=== PATIENT | male | born 1940 | race Caucasian/White ===

== ENCOUNTER 2018-10-04 16:24 | Inpatient (IN) | payer MEDICARE, OTHER ==
[~2018-10-04] VITALS: Ht 172.7 cm; Wt 86.2 kg
[2018-10-04 18:20] VITALS: BP 109/50
[2018-10-04] MEDS ORDERED: OxyCODONE HCL/ACETAMINOPHEN 10-325 MG TABLET PO PRN (19:30)
[2018-10-04] MEDS ORDERED: DEXTROSE 50%-WATER 25 GM/50 ML SYRINGE IVP PRN (19:30)
[2018-10-04 20:00] VITALS: BP 130/80
[2018-10-04] MEDS: OxyCODONE HCL/ACETAMINOPHEN 5-325 MG TABLET PO PRN (21:36)
[2018-10-04 22:15] LABS: GLUCOMETER DEV NAME(LOC) 2WR.2; GLUCOSE,POINT OF CARE 207 MG/DL (70-110)
[2018-10-04] MEDS ORDERED: SENNA 187 MG TABLET PO PRN (22:30)
[2018-10-04] MEDS ORDERED: TiZANidine HCL 4 MG TABLET PO PRN (22:45)
[2018-10-04] MEDS: INSULIN LISPRO 100 UNITS/ML SQ PRN (23:00)
[2018-10-04 23:34] LABS: GLUCOMETER DEV NAME(LOC) 2WR.2; GLUCOSE,POINT OF CARE 212 MG/DL (70-110)
[2018-10-04] MEDS: INSULIN GLARGINE,HUM.REC.ANLOG 100 UNITS/ML SQ SCH (23:39)
[2018-10-05 00:45] VITALS: BP 131/78
[2018-10-05 06:05] LABS: GLUCOMETER DEV NAME(LOC) 2WR.2; GLUCOSE,POINT OF CARE 151 MG/DL (70-110)
[2018-10-05 07:42] LABS: BASOPHILS % (AUTO) 0.5 % (0.0-2.0); EOSINOPHILS % (AUTO) 2.6 % (1.0-6.0); HEMATOCRIT 34.6 % (41-53); HEMOGLOBIN 11.6 g/dL (13.5-17.5); LYMPHOCYTES % (AUTO) 12.8 % (22.0-44.0); MEAN CORPUSCULAR HEMOGLOBIN 29.5 pg (26.0-34.0); MEAN CORPUSCULAR HGB CONC 33.5 G/dL (31.0-37.0); MEAN CORPUSCULAR VOLUME 88 fL (80-100); MONOCYTES # (AUTO) 0.8 K/uL (0.1-1.0); MONOCYTES % (AUTO) 11.4 % (2.0-9.0); NEUTROPHILS # (AUTO) 5.4 K/uL (1.8-7.7); NEUTROPHILS % (AUTO) 72.7 % (40.0-70.0); PLATELET COUNT (AUTO) 203 K/uL (150-450); RED BLOOD CELL COUNT(AUTO) 3.93 MIL/uL (4.50-5.90); RED CELL DISTRIBUTION WIDTH 13.7 % (11.5-14.5)
[2018-10-05 08:02] LABS: ANION GAP 7 mmol/L (8-16); CALCIUM, TOTAL 8.5 mg/dL (8.8-10.5); CARBON DIOXIDE 27 mmol/L (22-29); CHLORIDE 100 mmol/L (98-107); CREATININE 0.83 mg/dL (0.60-1.30); GLUCOSE,RANDOM 151 mg/dL (70-110); POTASSIUM 4.6 mmol/L (3.5-5.1); SODIUM SERUM 134 mmol/L (136-145); UREA NITROGEN, BLOOD 11 mg/dL (7-18)
[2018-10-05 08:04] LABS: GLOMERULAR FILTR. RATE CALC > 60 mL/min (>60)
[2018-10-05 08:05] VITALS: BP 151/83
[2018-10-05] MEDS: CEPHALEXIN MONOHYDRATE 500 MG CAPSULE PO SCH ×4 (08:17→20:30)
[2018-10-05] MEDS: LISINOPRIL 20 MG TABLET PO SCH (08:17)
[2018-10-05] MEDS: MEMANTINE HCL 10 MG TABLET PO SCH ×2 (08:17→20:30)
[2018-10-05] MEDS: MetFORMIN HCL 500 MG TABLET PO SCH (08:17)
[2018-10-05] MEDS: OxyCODONE HCL/ACETAMINOPHEN 5-325 MG TABLET PO PRN (08:18)
[2018-10-05] MEDS: INSULIN LISPRO 100 UNITS/ML SQ PRN ×3 (08:25→20:38)
[2018-10-05 13:09] LABS: GLUCOMETER DEV NAME(LOC) 2WR.2; GLUCOSE,POINT OF CARE 151 MG/DL (70-110)
[2018-10-05 16:30] VITALS: BP 136/77
[2018-10-05] MEDS: ACETAMINOPHEN 325 MG TABLET PO PRN (17:46)
[2018-10-05 18:49] LABS: GLUCOMETER DEV NAME(LOC) 2WR.1; GLUCOSE,POINT OF CARE 183 MG/DL (70-110)
[2018-10-05 20:09] LABS: APPEARANCE,URINE CLEAR (CLEAR); BILIRUBIN,URINE NEGATIVE (NEGATIVE); GLUCOSE, URINE (UA) 250 mg/dL (NEGATIVE); KETONES,URINE NEGATIVE (NEGATIVE); LEUKOCYTE ESTERASE ,URINE NEGATIVE (NEGATIVE); NITRATE,URINE NEGATIVE (NEGATIVE); OCCULT BLOOD,URINE NEGATIVE (NEGATIVE); PROTEIN,URINE NEGATIVE (NEGATIVE); UROBILINOGEN,URINE 0.2 mg/dL (<=1.0)
[2018-10-05] MEDS: DULoxetine HCL 60 MG CAPSULE PO SCH (20:30)
[2018-10-05] MEDS: DONEPEZIL HCL 5 MG TABLET PO SCH (20:30)
[2018-10-05 20:36] LABS: BACTERIA,URINE None Seen /HPF (None Seen); RBC,URINE None Seen /HPF (0-2); SQUAMOUS EPITHELIAL CELL,UR Rare /LPF (None Seen); WBC,URINE 0-2 /HPF (0-5)
[2018-10-05] MEDS: INSULIN GLARGINE,HUM.REC.ANLOG 100 UNITS/ML SQ SCH (20:38)
[2018-10-05] MEDS ORDERED: INSULIN GLARGINE,HUM.REC.ANLOG 100 UNITS/ML SQ SCH (21:00)
[2018-10-05 21:24] LABS: GLUCOMETER DEV NAME(LOC) 2WR.1; GLUCOSE,POINT OF CARE 193 MG/DL (70-110)
[2018-10-05 23:00] VITALS: BP 102/62
[2018-10-06] VITALS: BP 102/62
[2018-10-06 06:39] LABS: GLUCOMETER DEV NAME(LOC) 2WR.2; GLUCOSE,POINT OF CARE 163 MG/DL (70-110)
[2018-10-06 07:20] VITALS: BP 150/68
[2018-10-06] MEDS: LISINOPRIL 20 MG TABLET PO SCH (09:09)
[2018-10-06] MEDS: MEMANTINE HCL 10 MG TABLET PO SCH ×2 (09:09→19:54)
[2018-10-06] MEDS: CEPHALEXIN MONOHYDRATE 500 MG CAPSULE PO SCH ×4 (09:10→19:54)
[2018-10-06] MEDS: MetFORMIN HCL 500 MG TABLET PO SCH (09:10)
[2018-10-06] MEDS: INSULIN LISPRO 100 UNITS/ML SQ PRN ×3 (09:15→17:41)
[2018-10-06 11:30] LABS: GLUCOMETER DEV NAME(LOC) 2WR.2; GLUCOSE,POINT OF CARE 198 MG/DL (70-110)
[2018-10-06] MEDS ORDERED: DiphenhydrAMINE HCL 25 MG CAPSULE PO PRN (14:45)
[2018-10-06 15:51] VITALS: BP 127/83
[2018-10-06] MEDS: DONEPEZIL HCL 5 MG TABLET PO SCH (19:54)
[2018-10-06] MEDS: TAMSULOSIN HCL 0.4 MG CAPSULE PO SCH (19:54)
[2018-10-06] MEDS: DULoxetine HCL 60 MG CAPSULE PO SCH (19:54)
[2018-10-06] MEDS: INSULIN GLARGINE,HUM.REC.ANLOG 100 UNITS/ML SQ SCH (20:14)
[2018-10-06 22:24] LABS: GLUCOMETER DEV NAME(LOC) 2WR.1; GLUCOSE,POINT OF CARE 241 MG/DL (70-110)
[2018-10-06 22:24] LABS: GLUCOMETER DEV NAME(LOC) 2WR.1; GLUCOSE,POINT OF CARE 176 MG/DL (70-110)
[2018-10-06] MEDS: MELATONIN 5 MG TABLET PO PRN (23:13)
[2018-10-07] VITALS: BP 135/73
[2018-10-07 06:15] LABS: GLUCOMETER DEV NAME(LOC) 2WR.1; GLUCOSE,POINT OF CARE 197 MG/DL (70-110)
[2018-10-07 06:32] LABS: BASOPHILS % (AUTO) 0.7 % (0.0-2.0); EOSINOPHILS % (AUTO) 6.1 % (1.0-6.0); HEMATOCRIT 33.5 % (41-53); HEMOGLOBIN 11.4 g/dL (13.5-17.5); LYMPHOCYTES # (AUTO) 1.2 K/uL (1.0-4.8); LYMPHOCYTES % (AUTO) 17.6 % (22.0-44.0); MEAN CORPUSCULAR HEMOGLOBIN 29.8 pg (26.0-34.0); MEAN CORPUSCULAR HGB CONC 33.9 G/dL (31.0-37.0); MEAN CORPUSCULAR VOLUME 88 fL (80-100); MONOCYTES # (AUTO) 0.8 K/uL (0.1-1.0); MONOCYTES % (AUTO) 11.6 % (2.0-9.0); NEUTROPHILS # (AUTO) 4.3 K/uL (1.8-7.7); PLATELET COUNT (AUTO) 269 K/uL (150-450); RED BLOOD CELL COUNT(AUTO) 3.83 MIL/uL (4.50-5.90); RED CELL DISTRIBUTION WIDTH 14.1 % (11.5-14.5)
[2018-10-07 07:45] VITALS: BP 139/75
[2018-10-07] MEDS: LISINOPRIL 20 MG TABLET PO SCH (08:03)
[2018-10-07] MEDS: MEMANTINE HCL 10 MG TABLET PO SCH ×2 (08:03→20:41)
[2018-10-07] MEDS: MetFORMIN HCL 500 MG TABLET PO SCH (08:03)
[2018-10-07] MEDS: CEPHALEXIN MONOHYDRATE 500 MG CAPSULE PO SCH ×4 (08:03→20:41)
[2018-10-07] MEDS: ACETAMINOPHEN 325 MG TABLET PO PRN (11:39)
[2018-10-07] MEDS ORDERED: QUEtiapine FUMARATE 25 MG TABLET PO PRN (12:00)
[2018-10-07] MEDS: INSULIN LISPRO 100 UNITS/ML SQ PRN ×3 (12:17→21:05)
[2018-10-07 12:45] LABS: GLUCOMETER DEV NAME(LOC) 2WR.2; GLUCOSE,POINT OF CARE 194 MG/DL (70-110)
[2018-10-07 16:30] VITALS: BP 111/68
[2018-10-07 18:36] LABS: GLUCOMETER DEV NAME(LOC) 2WR.1; GLUCOSE,POINT OF CARE 157 MG/DL (70-110)
[2018-10-07] MEDS: MELATONIN 5 MG TABLET PO PRN (20:41)
[2018-10-07] MEDS: TAMSULOSIN HCL 0.4 MG CAPSULE PO SCH (20:41)
[2018-10-07] MEDS: DULoxetine HCL 60 MG CAPSULE PO SCH (20:41)
[2018-10-07] MEDS: DONEPEZIL HCL 5 MG TABLET PO SCH (20:41)
[2018-10-07] MEDS ORDERED: QUEtiapine FUMARATE 25 MG TABLET PO SCH (21:00)
[2018-10-07] MEDS: INSULIN GLARGINE,HUM.REC.ANLOG 100 UNITS/ML SQ SCH (21:02)
[2018-10-07 23:05] LABS: GLUCOMETER DEV NAME(LOC) 2WR.1; GLUCOSE,POINT OF CARE 214 MG/DL (70-110)
[2018-10-08] VITALS: BP 126/69
[2018-10-08 06:54] LABS: GLUCOMETER DEV NAME(LOC) 2WR.1; GLUCOSE,POINT OF CARE 189 MG/DL (70-110)
[2018-10-08 07:18] LABS: ANION GAP 5 mmol/L (8-16); CALCIUM, TOTAL 8.7 mg/dL (8.8-10.5); CARBON DIOXIDE 30 mmol/L (22-29); CHLORIDE 101 mmol/L (98-107); CREATININE 0.88 mg/dL (0.60-1.30); GLUCOSE,RANDOM 183 mg/dL (70-110); POTASSIUM 4.2 mmol/L (3.5-5.1); SODIUM SERUM 136 mmol/L (136-145); THYROID STIMULATING HORMONE 1.79 uIU/mL (0.36-3.74); UREA NITROGEN, BLOOD 11 mg/dL (7-18)
[2018-10-08 07:19] LABS: GLOMERULAR FILTR. RATE CALC > 60 mL/min (>60)
[2018-10-08] MEDS: MetFORMIN HCL 500 MG TABLET PO SCH (07:37)
[2018-10-08 08:10] VITALS: BP 145/73
[2018-10-08] MEDS: CEPHALEXIN MONOHYDRATE 500 MG CAPSULE PO SCH ×4 (08:17→20:56)
[2018-10-08] MEDS: MEMANTINE HCL 10 MG TABLET PO SCH ×2 (09:27→20:56)
[2018-10-08] MEDS: LISINOPRIL 20 MG TABLET PO SCH (09:27)
[2018-10-08] MEDS: ACETAMINOPHEN 325 MG TABLET PO PRN (11:36)
[2018-10-08] MEDS: INSULIN LISPRO 100 UNITS/ML SQ PRN ×3 (12:33→20:58)
[2018-10-08 13:40] LABS: GLUCOMETER DEV NAME(LOC) 2WR.2; GLUCOSE,POINT OF CARE 223 MG/DL (70-110)
[2018-10-08 16:02] VITALS: BP 105/76
[2018-10-08 19:21] LABS: GLUCOMETER DEV NAME(LOC) 2WR.2; GLUCOSE,POINT OF CARE 185 MG/DL (70-110)
[2018-10-08] MEDS: TAMSULOSIN HCL 0.4 MG CAPSULE PO SCH (20:56)
[2018-10-08] MEDS: DULoxetine HCL 60 MG CAPSULE PO SCH (20:56)
[2018-10-08] MEDS: MELATONIN 5 MG TABLET PO PRN (20:56)
[2018-10-08] MEDS: DONEPEZIL HCL 5 MG TABLET PO SCH (20:56)
[2018-10-08] MEDS: INSULIN GLARGINE,HUM.REC.ANLOG 100 UNITS/ML SQ SCH (20:58)
[2018-10-08 22:20] LABS: GLUCOMETER DEV NAME(LOC) 2WR.1; GLUCOSE,POINT OF CARE 178 MG/DL (70-110)
[2018-10-09] VITALS: BP 141/72
[2018-10-09] MEDS: ACETAMINOPHEN 325 MG TABLET PO PRN ×3 (03:23→16:23)
[2018-10-09 06:12] LABS: GLUCOMETER DEV NAME(LOC) 2WR.1; GLUCOSE,POINT OF CARE 177 MG/DL (70-110)
[2018-10-09 07:15] VITALS: BP 132/75
[2018-10-09] MEDS: MetFORMIN HCL 500 MG TABLET PO SCH (08:01)
[2018-10-09] MEDS: MEMANTINE HCL 10 MG TABLET PO SCH ×2 (08:01→20:53)
[2018-10-09] MEDS: LISINOPRIL 20 MG TABLET PO SCH (08:01)
[2018-10-09] MEDS: CEPHALEXIN MONOHYDRATE 500 MG CAPSULE PO SCH ×4 (08:01→20:54)
[2018-10-09] MEDS: MULTIVITAMINS WITH MINERALS, THERAPEUTIC TABLET PO SCH (08:02)
[2018-10-09] MEDS: INSULIN LISPRO 100 UNITS/ML SQ PRN ×4 (08:08→21:03)
[2018-10-09 13:20] LABS: GLUCOMETER DEV NAME(LOC) 2WR.1; GLUCOSE,POINT OF CARE 195 MG/DL (70-110)
[2018-10-09 16:20] VITALS: BP 134/62
[2018-10-09 17:59] LABS: GLUCOMETER DEV NAME(LOC) 2WR.1; GLUCOSE,POINT OF CARE 192 MG/DL (70-110)
[2018-10-09] MEDS: DULoxetine HCL 60 MG CAPSULE PO SCH (20:52)
[2018-10-09] MEDS: MELATONIN 5 MG TABLET PO PRN (20:53)
[2018-10-09] MEDS: DONEPEZIL HCL 5 MG TABLET PO SCH (20:53)
[2018-10-09] MEDS: TAMSULOSIN HCL 0.4 MG CAPSULE PO SCH (20:53)
[2018-10-09] MEDS: INSULIN GLARGINE,HUM.REC.ANLOG 100 UNITS/ML SQ SCH (21:02)
[2018-10-09] MEDS: -LIDODERM PATCH NOTE- MISC SCH (21:03)
[2018-10-09 22:29] LABS: GLUCOMETER DEV NAME(LOC) 2WR.1; GLUCOSE,POINT OF CARE 211 MG/DL (70-110)
[2018-10-10 01:08] VITALS: BP 134/78
[2018-10-10] MEDS: ACETAMINOPHEN 325 MG TABLET PO PRN ×2 (01:08→15:40)
[2018-10-10 06:40] LABS: GLUCOMETER DEV NAME(LOC) 2WR.1; GLUCOSE,POINT OF CARE 184 MG/DL (70-110)
[2018-10-10] MEDS: MetFORMIN HCL 500 MG TABLET PO SCH (08:00)
[2018-10-10 08:02] VITALS: BP 127/75
[2018-10-10] MEDS: MULTIVITAMINS WITH MINERALS, THERAPEUTIC TABLET PO SCH (10:02)
[2018-10-10] MEDS: MEMANTINE HCL 10 MG TABLET PO SCH ×2 (10:02→20:30)
[2018-10-10] MEDS: LIDOCAINE 5% TRANSDERMAL PATCH TD SCH (10:02)
[2018-10-10] MEDS: DOCUSATE SODIUM 100 MG CAPSULE PO PRN (10:02)
[2018-10-10] MEDS: LISINOPRIL 20 MG TABLET PO SCH (10:05)
[2018-10-10] MEDS: INSULIN LISPRO 100 UNITS/ML SQ PRN ×3 (12:42→21:20)
[2018-10-10 12:50] LABS: GLUCOMETER DEV NAME(LOC) 2WR.1; GLUCOSE,POINT OF CARE 176 MG/DL (70-110)
[2018-10-10] MEDS ORDERED: HYDROCORTISONE 1% 30 GM OINTMENT TP SCH (13:45)
[2018-10-10] MEDS: HYDROCORTISONE 1% 30 GM OINTMENT TP SCH ×2 (15:09→20:31)
[2018-10-10 15:36] VITALS: BP 111/70
[2018-10-10 18:15] LABS: GLUCOMETER DEV NAME(LOC) 2WR.1; GLUCOSE,POINT OF CARE 174 MG/DL (70-110)
[2018-10-10 20:24] VITALS: BP 116/78
[2018-10-10] MEDS: DONEPEZIL HCL 5 MG TABLET PO SCH (20:30)
[2018-10-10] MEDS: DULoxetine HCL 60 MG CAPSULE PO SCH (20:30)
[2018-10-10] MEDS: MELATONIN 5 MG TABLET PO PRN (20:30)
[2018-10-10] MEDS: TAMSULOSIN HCL 0.4 MG CAPSULE PO SCH (20:30)
[2018-10-10] MEDS: -LIDODERM PATCH NOTE- MISC SCH (20:30)
[2018-10-10] MEDS: INSULIN GLARGINE,HUM.REC.ANLOG 100 UNITS/ML SQ SCH (21:19)
[2018-10-10 21:29] LABS: GLUCOMETER DEV NAME(LOC) 2WR.1; GLUCOSE,POINT OF CARE 197 MG/DL (70-110)
[2018-10-11 02:58] VITALS: BP 128/89
[2018-10-11 06:29] LABS: GLUCOMETER DEV NAME(LOC) 2WR.1; GLUCOSE,POINT OF CARE 183 MG/DL (70-110)
[2018-10-11 07:20] VITALS: BP 118/66
[2018-10-11] MEDS: MULTIVITAMINS WITH MINERALS, THERAPEUTIC TABLET PO SCH (08:12)
[2018-10-11] MEDS: HYDROCORTISONE 1% 30 GM OINTMENT TP SCH ×3 (08:13→21:14)
[2018-10-11] MEDS: LISINOPRIL 20 MG TABLET PO SCH (08:13)
[2018-10-11] MEDS: MEMANTINE HCL 10 MG TABLET PO SCH ×2 (08:13→21:15)
[2018-10-11] MEDS: MetFORMIN HCL 500 MG TABLET PO SCH (08:13)
[2018-10-11] MEDS: LIDOCAINE 5% TRANSDERMAL PATCH TD SCH (08:13)
[2018-10-11] MEDS: INSULIN LISPRO 100 UNITS/ML SQ PRN ×4 (08:17→21:28)
[2018-10-11 11:45] LABS: BASOPHILS % (AUTO) 0.6 % (0.0-2.0); EOSINOPHILS % (AUTO) 4.6 % (1.0-6.0); HEMATOCRIT 40.5 % (41-53); HEMOGLOBIN 13.6 g/dL (13.5-17.5); LYMPHOCYTES # (AUTO) 1.4 K/uL (1.0-4.8); LYMPHOCYTES % (AUTO) 15.6 % (22.0-44.0); MEAN CORPUSCULAR HEMOGLOBIN 29.3 pg (26.0-34.0); MEAN CORPUSCULAR HGB CONC 33.5 G/dL (31.0-37.0); MEAN CORPUSCULAR VOLUME 88 fL (80-100); MONOCYTES # (AUTO) 0.7 K/uL (0.1-1.0); NEUTROPHILS # (AUTO) 6.7 K/uL (1.8-7.7); NEUTROPHILS % (AUTO) 72.2 % (40.0-70.0); PLATELET COUNT (AUTO) 484 K/uL (150-450); RED BLOOD CELL COUNT(AUTO) 4.63 MIL/uL (4.50-5.90)
[2018-10-11 12:34] LABS: GLUCOMETER DEV NAME(LOC) 2WR.2; GLUCOSE,POINT OF CARE 183 MG/DL (70-110)
[2018-10-11] MEDS ORDERED: CETIRIZINE HCL 10 MG TABLET PO PRN (15:15)
[2018-10-11 15:18] VITALS: BP 98/67
[2018-10-11] MEDS ORDERED: DEXAMETHASONE 4 MG TABLET PO SCH (18:00)
[2018-10-11] MEDS: TAMSULOSIN HCL 0.4 MG CAPSULE PO SCH (21:15)
[2018-10-11] MEDS: DULoxetine HCL 60 MG CAPSULE PO SCH (21:15)
[2018-10-11] MEDS: DONEPEZIL HCL 5 MG TABLET PO SCH (21:15)
[2018-10-11] MEDS: MELATONIN 5 MG TABLET PO PRN (21:16)
[2018-10-11] MEDS: FLUOCINONIDE 0.05% 15 GM OINTMENT TP SCH (21:16)
[2018-10-11] MEDS: INSULIN GLARGINE,HUM.REC.ANLOG 100 UNITS/ML SQ SCH (21:27)
[2018-10-11] MEDS: -LIDODERM PATCH NOTE- MISC SCH (21:28)
[2018-10-11 21:43] LABS: GLUCOMETER DEV NAME(LOC) 2WR.2; GLUCOSE,POINT OF CARE 190 MG/DL (70-110)
[2018-10-12 00:34] VITALS: BP 117/79
[2018-10-12 05:29] LABS: GLUCOMETER DEV NAME(LOC) 2WR.1; GLUCOSE,POINT OF CARE 183 MG/DL (70-110)
[2018-10-12 06:34] LABS: GLUCOMETER DEV NAME(LOC) 2WR.2; GLUCOSE,POINT OF CARE 150 MG/DL (70-110)
[2018-10-12 07:15] VITALS: BP 110/69
[2018-10-12] MEDS: LISINOPRIL 20 MG TABLET PO SCH (08:00)
[2018-10-12] MEDS: MetFORMIN HCL 500 MG TABLET PO SCH (08:00)
[2018-10-12] MEDS: MEMANTINE HCL 10 MG TABLET PO SCH ×2 (08:00→21:01)
[2018-10-12] MEDS: MULTIVITAMINS WITH MINERALS, THERAPEUTIC TABLET PO SCH (08:00)
[2018-10-12] MEDS: DOCUSATE SODIUM 100 MG CAPSULE PO PRN (08:00)
[2018-10-12] MEDS: LIDOCAINE 5% TRANSDERMAL PATCH TD SCH (08:14)
[2018-10-12] MEDS: FLUOCINONIDE 0.05% 15 GM OINTMENT TP SCH ×2 (11:49→21:02)
[2018-10-12 12:00] LABS: GLUCOMETER DEV NAME(LOC) 2WR.1; GLUCOSE,POINT OF CARE 162 MG/DL (70-110)
[2018-10-12] MEDS: INSULIN LISPRO 100 UNITS/ML SQ PRN ×3 (12:18→21:05)
[2018-10-12 16:05] VITALS: BP 101/62
[2018-10-12 18:55] LABS: GLUCOMETER DEV NAME(LOC) 2WR.2; GLUCOSE,POINT OF CARE 149 MG/DL (70-110)
[2018-10-12] MEDS: MELATONIN 5 MG TABLET PO PRN (21:01)
[2018-10-12] MEDS: TAMSULOSIN HCL 0.4 MG CAPSULE PO SCH (21:01)
[2018-10-12] MEDS: DULoxetine HCL 60 MG CAPSULE PO SCH (21:01)
[2018-10-12] MEDS: DONEPEZIL HCL 5 MG TABLET PO SCH (21:01)
[2018-10-12] MEDS: -LIDODERM PATCH NOTE- MISC SCH (21:01)
[2018-10-12] MEDS: INSULIN GLARGINE,HUM.REC.ANLOG 100 UNITS/ML SQ SCH (21:03)
[2018-10-12 23:25] LABS: GLUCOMETER DEV NAME(LOC) 2WR.2; GLUCOSE,POINT OF CARE 160 MG/DL (70-110)
[2018-10-13 01:43] VITALS: BP 110/64
[2018-10-13 06:04] LABS: GLUCOMETER DEV NAME(LOC) 2WR.2; GLUCOSE,POINT OF CARE 98 MG/DL (70-110)
[2018-10-13] MEDS: MetFORMIN HCL 500 MG TABLET PO SCH (07:00)
[2018-10-13 08:01] VITALS: BP 119/61
[2018-10-13] MEDS: MEMANTINE HCL 10 MG TABLET PO SCH ×2 (08:33→20:27)
[2018-10-13] MEDS: MULTIVITAMINS WITH MINERALS, THERAPEUTIC TABLET PO SCH (08:33)
[2018-10-13] MEDS: FLUOCINONIDE 0.05% 15 GM OINTMENT TP SCH ×2 (08:33→20:33)
[2018-10-13] MEDS: LISINOPRIL 20 MG TABLET PO SCH (08:33)
[2018-10-13] MEDS: LIDOCAINE 5% TRANSDERMAL PATCH TD SCH (08:43)
[2018-10-13 12:20] LABS: GLUCOMETER DEV NAME(LOC) 2WR.2; GLUCOSE,POINT OF CARE 159 MG/DL (70-110)
[2018-10-13] MEDS: CAMPHOR/MENTHOL 222 ML LOTION TP SCH ×2 (17:14→20:33)
[2018-10-13 17:41] VITALS: BP 116/73
[2018-10-13 18:16] LABS: GLUCOMETER DEV NAME(LOC) 2WR.2; GLUCOSE,POINT OF CARE 132 MG/DL (70-110)
[2018-10-13] MEDS: TAMSULOSIN HCL 0.4 MG CAPSULE PO SCH (20:27)
[2018-10-13] MEDS: CETIRIZINE HCL 10 MG TABLET PO SCH (20:28)
[2018-10-13] MEDS: DULoxetine HCL 60 MG CAPSULE PO SCH (20:28)
[2018-10-13] MEDS: DONEPEZIL HCL 5 MG TABLET PO SCH (20:28)
[2018-10-13] MEDS: INSULIN GLARGINE,HUM.REC.ANLOG 100 UNITS/ML SQ SCH (20:30)
[2018-10-13] MEDS: INSULIN LISPRO 100 UNITS/ML SQ PRN (20:31)
[2018-10-13] MEDS: -LIDODERM PATCH NOTE- MISC SCH (20:38)
[2018-10-13 21:19] LABS: GLUCOMETER DEV NAME(LOC) 2WR.2; GLUCOSE,POINT OF CARE 240 MG/DL (70-110)
[2018-10-13] MEDS: MELATONIN 5 MG TABLET PO PRN (22:33)
[2018-10-13 23:30] VITALS: BP 131/63
[2018-10-14 05:55] LABS: GLUCOMETER DEV NAME(LOC) 2WR.2; GLUCOSE,POINT OF CARE 123 MG/DL (70-110)
[2018-10-14] MEDS: MetFORMIN HCL 500 MG TABLET PO SCH (07:56)
[2018-10-14] MEDS: MULTIVITAMINS WITH MINERALS, THERAPEUTIC TABLET PO SCH (08:00)
[2018-10-14] MEDS: MEMANTINE HCL 10 MG TABLET PO SCH ×2 (08:00→20:28)
[2018-10-14] MEDS: LIDOCAINE 5% TRANSDERMAL PATCH TD SCH (08:00)
[2018-10-14] MEDS: FLUOCINONIDE 0.05% 15 GM OINTMENT TP SCH ×2 (08:00→20:25)
[2018-10-14] MEDS: LISINOPRIL 20 MG TABLET PO SCH (08:01)
[2018-10-14] MEDS: CAMPHOR/MENTHOL 222 ML LOTION TP SCH ×3 (08:01→22:20)
[2018-10-14 14:15] LABS: GLUCOMETER DEV NAME(LOC) 2WR.1; GLUCOSE,POINT OF CARE 126 MG/DL (70-110)
[2018-10-14 17:19] LABS: GLUCOMETER DEV NAME(LOC) 2WR.2; GLUCOSE,POINT OF CARE 162 MG/DL (70-110)
[2018-10-14] MEDS: INSULIN LISPRO 100 UNITS/ML SQ PRN ×2 (17:50→22:18)
[2018-10-14] MEDS: DULoxetine HCL 60 MG CAPSULE PO SCH (20:26)
[2018-10-14] MEDS: TAMSULOSIN HCL 0.4 MG CAPSULE PO SCH (20:26)
[2018-10-14] MEDS: CETIRIZINE HCL 10 MG TABLET PO SCH (20:26)
[2018-10-14] MEDS: DONEPEZIL HCL 5 MG TABLET PO SCH (20:26)
[2018-10-14] MEDS: INSULIN GLARGINE,HUM.REC.ANLOG 100 UNITS/ML SQ SCH (22:18)
[2018-10-14] MEDS: -LIDODERM PATCH NOTE- MISC SCH (22:20)
[2018-10-14 23:14] LABS: GLUCOMETER DEV NAME(LOC) 2WR.2; GLUCOSE,POINT OF CARE 149 MG/DL (70-110)
[2018-10-14 23:56] VITALS: BP 122/62
[2018-10-15 05:54] LABS: GLUCOMETER DEV NAME(LOC) 2WR.2; GLUCOSE,POINT OF CARE 138 MG/DL (70-110)
[2018-10-15 07:20] VITALS: BP 131/76
[2018-10-15] MEDS: LISINOPRIL 20 MG TABLET PO SCH (07:54)
[2018-10-15] MEDS: DOCUSATE SODIUM 100 MG CAPSULE PO PRN (07:54)
[2018-10-15] MEDS: FLUOCINONIDE 0.05% 15 GM OINTMENT TP SCH ×2 (07:54→20:17)
[2018-10-15] MEDS: LIDOCAINE 5% TRANSDERMAL PATCH TD SCH (07:54)
[2018-10-15] MEDS: MULTIVITAMINS WITH MINERALS, THERAPEUTIC TABLET PO SCH (07:54)
[2018-10-15] MEDS: MEMANTINE HCL 10 MG TABLET PO SCH ×2 (07:54→20:17)
[2018-10-15] MEDS: MetFORMIN HCL 500 MG TABLET PO SCH (07:54)
[2018-10-15] MEDS: CAMPHOR/MENTHOL 222 ML LOTION TP SCH ×3 (07:58→20:17)
[2018-10-15 15:46] VITALS: BP 113/74
[2018-10-15] MEDS: INSULIN LISPRO 100 UNITS/ML SQ PRN ×2 (17:41→20:38)
[2018-10-15 17:50] LABS: GLUCOMETER DEV NAME(LOC) 2WR.1; GLUCOSE,POINT OF CARE 176 MG/DL (70-110)
[2018-10-15 20:13] VITALS: BP 115/67
[2018-10-15] MEDS: -LIDODERM PATCH NOTE- MISC SCH (20:16)
[2018-10-15] MEDS: CETIRIZINE HCL 10 MG TABLET PO SCH (20:17)
[2018-10-15] MEDS: DONEPEZIL HCL 5 MG TABLET PO SCH (20:17)
[2018-10-15] MEDS: TAMSULOSIN HCL 0.4 MG CAPSULE PO SCH (20:17)
[2018-10-15] MEDS: DULoxetine HCL 60 MG CAPSULE PO SCH (20:17)
[2018-10-15] MEDS: INSULIN GLARGINE,HUM.REC.ANLOG 100 UNITS/ML SQ SCH (20:38)
[2018-10-15 21:54] LABS: GLUCOMETER DEV NAME(LOC) 2WR.1; GLUCOSE,POINT OF CARE 177 MG/DL (70-110)
[2018-10-15] MEDS: MELATONIN 5 MG TABLET PO PRN (21:57)
[2018-10-15] MEDS ORDERED: MULT-248 PO (23:00)
[2018-10-15] MEDS ORDERED: FLUO15OI TP (23:00)
[2018-10-15] MEDS ORDERED: CETI10TA59 PO (23:00)
[2018-10-15] MEDS ORDERED: DULO60CA44 PO (23:00)
[2018-10-15] MEDS ORDERED: METF-960 PO (23:00)
[2018-10-15] MEDS ORDERED: MEMA10TA11 PO (23:00)
[2018-10-15] MEDS ORDERED: LISI-662 PO (23:00)
[2018-10-15] MEDS ORDERED: DONE5TAB5 PO (23:00)
[2018-10-15] MEDS ORDERED: TAMS-1 PO (23:00)
[2018-10-15] MEDS ORDERED: LIDO700A15 TD (23:00)
[2018-10-15] MEDS ORDERED: INSLAN SQ (23:00)
[2018-10-15] MEDS ORDERED: SARN225L TP (23:00)
[2018-10-16 02:35] VITALS: BP 130/90
[2018-10-16 06:30] LABS: GLUCOMETER DEV NAME(LOC) 2WR.1; GLUCOSE,POINT OF CARE 114 MG/DL (70-110)
[2018-10-16] MEDS: MetFORMIN HCL 500 MG TABLET PO SCH (07:55)
[2018-10-16 08:22] VITALS: BP 104/60
[2018-10-16] MEDS: MEMANTINE HCL 10 MG TABLET PO SCH ×2 (09:01→21:05)
[2018-10-16] MEDS: MULTIVITAMINS WITH MINERALS, THERAPEUTIC TABLET PO SCH (09:01)
[2018-10-16] MEDS: LISINOPRIL 20 MG TABLET PO SCH (09:01)
[2018-10-16] MEDS: CAMPHOR/MENTHOL 222 ML LOTION TP SCH ×3 (09:34→21:07)
[2018-10-16] MEDS: LIDOCAINE 5% TRANSDERMAL PATCH TD SCH (09:34)
[2018-10-16] MEDS: FLUOCINONIDE 0.05% 15 GM OINTMENT TP SCH ×2 (09:34→21:07)
[2018-10-16 12:40] LABS: GLUCOMETER DEV NAME(LOC) 2WR.2; GLUCOSE,POINT OF CARE 95 MG/DL (70-110)
[2018-10-16 14:52] VITALS: BP 137/73
[2018-10-16 16:00] VITALS: BP 116/48
[2018-10-16 17:14] LABS: GLUCOMETER DEV NAME(LOC) 2WR.1; GLUCOSE,POINT OF CARE 171 MG/DL (70-110)
[2018-10-16] MEDS: INSULIN LISPRO 100 UNITS/ML SQ PRN ×2 (17:58→21:19)
[2018-10-16] MEDS: TAMSULOSIN HCL 0.4 MG CAPSULE PO SCH (21:05)
[2018-10-16] MEDS: DONEPEZIL HCL 5 MG TABLET PO SCH (21:05)
[2018-10-16] MEDS: MELATONIN 5 MG TABLET PO PRN (21:05)
[2018-10-16] MEDS: CETIRIZINE HCL 10 MG TABLET PO SCH (21:06)
[2018-10-16] MEDS: DULoxetine HCL 60 MG CAPSULE PO SCH (21:07)
[2018-10-16] MEDS: -LIDODERM PATCH NOTE- MISC SCH (21:07)
[2018-10-16] MEDS: INSULIN GLARGINE,HUM.REC.ANLOG 100 UNITS/ML SQ SCH (21:19)
[2018-10-16 21:49] LABS: GLUCOMETER DEV NAME(LOC) 2WR.2; GLUCOSE,POINT OF CARE 164 MG/DL (70-110)
[2018-10-17 02:56] VITALS: BP 143/80
[2018-10-17 05:59] LABS: GLUCOMETER DEV NAME(LOC) 2WR.2; GLUCOSE,POINT OF CARE 128 MG/DL (70-110)
[2018-10-17] MEDS: MetFORMIN HCL 500 MG TABLET PO SCH (07:56)
[2018-10-17 08:39] VITALS: BP 125/80
[2018-10-17] MEDS: MEMANTINE HCL 10 MG TABLET PO SCH ×2 (09:00→20:32)
[2018-10-17] MEDS: LIDOCAINE 5% TRANSDERMAL PATCH TD SCH ×3 (09:00→12:19)
[2018-10-17] MEDS: MULTIVITAMINS WITH MINERALS, THERAPEUTIC TABLET PO SCH (09:00)
[2018-10-17] MEDS: FLUOCINONIDE 0.05% 15 GM OINTMENT TP SCH ×2 (09:00→20:46)
[2018-10-17] MEDS: LISINOPRIL 20 MG TABLET PO SCH (09:00)
[2018-10-17] MEDS: CAMPHOR/MENTHOL 222 ML LOTION TP SCH ×3 (09:00→20:46)
[2018-10-17] MEDS: INSULIN LISPRO 100 UNITS/ML SQ PRN ×2 (12:08→20:43)
[2018-10-17 12:39] LABS: GLUCOMETER DEV NAME(LOC) 2WR.2; GLUCOSE,POINT OF CARE 142 MG/DL (70-110)
[2018-10-17 15:51] VITALS: BP 111/71
[2018-10-17 17:29] LABS: GLUCOMETER DEV NAME(LOC) 2WR.2; GLUCOSE,POINT OF CARE 121 MG/DL (70-110)
[2018-10-17] MEDS: CETIRIZINE HCL 10 MG TABLET PO SCH (20:32)
[2018-10-17] MEDS: DULoxetine HCL 60 MG CAPSULE PO SCH (20:32)
[2018-10-17] MEDS: DONEPEZIL HCL 5 MG TABLET PO SCH (20:32)
[2018-10-17] MEDS: TAMSULOSIN HCL 0.4 MG CAPSULE PO SCH (20:32)
[2018-10-17] MEDS: DOCUSATE SODIUM 100 MG CAPSULE PO PRN (20:33)
[2018-10-17] MEDS: -LIDODERM PATCH NOTE- MISC SCH (20:33)
[2018-10-17] MEDS: INSULIN GLARGINE,HUM.REC.ANLOG 100 UNITS/ML SQ SCH (20:46)
[2018-10-17] MEDS: MELATONIN 5 MG TABLET PO PRN (20:49)
[2018-10-17 21:34] LABS: GLUCOMETER DEV NAME(LOC) 2WR.1; GLUCOSE,POINT OF CARE 182 MG/DL (70-110)
[2018-10-18] VITALS: BP 124/66
[2018-10-18] MEDS ORDERED: INSU100V SQ (01:37)
[2018-10-18] MEDS ORDERED: MELA5TAB3 PO (01:39)
[2018-10-18] MEDS ORDERED: DSS100 PO (01:40)
[2018-10-18 05:50] LABS: GLUCOMETER DEV NAME(LOC) 2WR.1; GLUCOSE,POINT OF CARE 122 MG/DL (70-110)
[2018-10-18] MEDS: MetFORMIN HCL 500 MG TABLET PO SCH (07:51)
[2018-10-18 08:01] VITALS: BP 130/79
[2018-10-18] MEDS: CAMPHOR/MENTHOL 222 ML LOTION TP SCH (08:53)
[2018-10-18] MEDS: MEMANTINE HCL 10 MG TABLET PO SCH (08:53)
[2018-10-18] MEDS: DOCUSATE SODIUM 100 MG CAPSULE PO PRN (08:53)
[2018-10-18] MEDS: MULTIVITAMINS WITH MINERALS, THERAPEUTIC TABLET PO SCH (08:53)
[2018-10-18] MEDS: FLUOCINONIDE 0.05% 15 GM OINTMENT TP SCH (08:53)
[2018-10-18] MEDS: LISINOPRIL 20 MG TABLET PO SCH (08:53)
== END 2018-10-18 11:33 | disposition home health service (06) | DRG 552 ==
LOC: 2WR 18:15
DX: M48.062 Spinal stenosis, lumbar region with neurogenic claudication (principal); E87.1 Hypo-osmolality and hyponatremia; E11.9 Type 2 diabetes mellitus without complications; E55.9 Vitamin D deficiency, unspecified; E66.9 Obesity, unspecified; F03.90 Unspecified dementia, unspecified severity, without behavioral disturbance, psychotic disturbance, mood disturbance, and anxiety; H40.9 Unspecified glaucoma; I10 Essential (primary) hypertension; M43.16 Spondylolisthesis, lumbar region; Z82.49 Family history of ischemic heart disease and other diseases of the circulatory system; Z98.41 Cataract extraction status, right eye; Z98.42 Cataract extraction status, left eye; Z68.28 Body mass index [BMI] 28.0-28.9, adult; Z83.3 Family history of diabetes mellitus; D64.9 Anemia, unspecified; G47.33 Obstructive sleep apnea (adult) (pediatric); L25.9 Unspecified contact dermatitis, unspecified cause; M47.9 Spondylosis, unspecified; M54.16 Radiculopathy, lumbar region; N31.9 Neuromuscular dysfunction of bladder, unspecified; N40.0 Benign prostatic hyperplasia without lower urinary tract symptoms; Z79.4 Long term (current) use of insulin; Z79.899 Other long term (current) drug therapy; Z91.81 History of falling
CPT/HCPCS: 72100; 84443; 86140; 87081; 92507; 92508; 92523; 93970; 94660; 97110; 97112; 97116; 97150; 97163; 97166; 97530; 97535; 99366; J1815; J8540